=== PATIENT | male | born 1980 | race Caucasian/White ===

== ENCOUNTER 2024-06-27 16:48 | Emergency (ER) | payer OTHER ==
--- NOTE | 2024-06-27 16:57 | ERPHSYRPT ---
- History of Present Illness Time Seen by Provider: 06/27/24 16:57 Source: patient, family Exam Limitations: no limitations Physician History: This is a 44-year-old white male patient arrives by private vehicle with the complaint of vomiting, diarrhea and fever and is concerned about dehydration. Patient feels very fatigued and off mentally. His temperature on arrival to the emergency department is 102 F. Patient has a history of asthma and is HIV positive. His symptoms began 2 days ago. Patient denies abdominal pain. Patient denies chest pain. Patient denies cough. Timing/Duration: day(s) (2) Severity: moderate Associated Symptoms: nausea, vomiting, fever, weakness, other (Diarrhea), No abdominal pain, No shortness of breath, No chest pain Allergies/Adverse Reactions: doxycycline Allergy (Verified 01/17/14 03:40) Vomiting Hx Tetanus, Diphtheria Vaccination/Date Given: Yes Hx Influenza Vaccination/Date Given: No Hx Pneumococcal Vaccination/Date Given: No Travel Risk - International Travel Have you traveled outside of the country in past 3 weeks: No - Emerging Infectious Disease Are you exhibiting symptoms associated with any current EIDs: No Symptoms: Diarrhea, Fever, Vomitting - Review of Systems Constitutional: Fever, Weakness Eyes: No Symptoms Ears, Nose, & Throat: No Symptoms Respiratory: No Symptoms Cardiac: No Symptoms Abdominal/Gastrointestinal: Nausea, Vomiting, Diarrhea, Appetite Changes, No Abdominal Pain Genitourinary Symptoms: No Symptoms Musculoskeletal: No Symptoms Skin: No Symptoms Neurological: No Symptoms Psychological: No Symptoms Endocrine: No Symptoms Hematologic/Lymphatic: No Symptoms Immunological/Allergic: No Symptoms All Other Systems: Reviewed and Negative - Past Medical History Pertinent Past Medical History: No Neurological History: No Pertinent History ENT History: No Pertinent History Cardiac History: No Pertinent History Respiratory History: Asthma Endocrine Medical History: No Pertinent History Musculoskeletal History: No Pertinent History GI Medical History: No Pertinent History History: No Pertinent History Psycho-Social History: No Pertinent History Male Reproductive Disorders: No Pertinent History Other Medical History: HIV (+) - Past Surgical History Past Surgical History: No Neuro Surgical History: No Pertinent History Cardiac: No Pertinent History Respiratory: No Pertinent History Gastrointestinal: No Pertinent History Genitourinary: No Pertinent History Musculoskeletal: No Pertinent History Significant Family History: no pertinent family hx - Social History Smoking Status: Never smoker Exposure to second hand smoke: Yes Drug Use: none Patient Lives Alone: Yes - Nursing Vital Signs Nursing Vital Signs: Initial Vital Signs Temperature 102 F 06/27/24 16:48 Pulse Rate 96 H 06/27/24 16:48 Respiratory Rate 18 06/27/24 16:48 Blood Pressure 123/82 06/27/24 16:48 O2 Sat by Pulse Oximetry 99 06/27/24 16:48 Pain Scale Pain Intensity 0 - Physical Exam General Appearance: mild distress, alert, anxiety, thin Eye Exam: PERRL/EOMI, eyes nml inspection Ears, Nose, Throat Exam: dry mucous membranes Neck Exam: normal inspection, non-tender, supple, full range of motion, No meningismus, No Brudzinski, No Kernig's, No midline tenderness Respiratory Exam: normal breath sounds, lungs clear, airway intact, No chest tenderness, No respiratory distress Gastrointestinal/Abdomen Exam: soft, normal bowel sounds, No tenderness, No guarding Rectal Exam: not done Back Exam: normal inspection, normal range of motion, No CVA tenderness, No vertebral tenderness Extremity Exam: normal inspection, normal range of motion, pelvis stable Neurologic Exam: alert, oriented x 3, cooperative, solar sales II-XII nml as tested, nml cerebellar function, nml station & gait, sensation nml Skin Exam: normal color, warm, dry Lymphatic Exam: No adenopathy SpO2 Interpretation: normal O2 Delivery: Room Air - Course Nursing assessment & vital signs reviewed: Yes Ordered Tests: Active Orders 24 hr Category Date Time Status IV Insertion STAT Care 06/27/24 17:12 Active POCT Glucose Check STAT Care 06/27/24 17:37 Active CHEST 1 VIEW (PORTABLE) Stat Exams 06/27/24 18:59 Completed HEAD WITHOUT CONTRAST [CT] Stat Exams 06/27/24 17:36 Completed AMYLASE Stat Lab 06/27/24 17:24 Completed BLOOD CULTURE Stat Lab 06/27/24 17:35 Received CBC W DIFF Stat Lab 06/27/24 17:24 Completed CMP Stat Lab 06/27/24 17:24 Completed LIPASE Stat Lab 06/27/24 17:24 Completed Lactic Acid Stat Lab 06/27/24 17:12 Completed Lactic Acid Stat Lab 06/27/24 19:30 Received MONO SCREEN Stat Lab 06/27/24 17:24 Completed POCT GLUCOSE Stat Lab 06/27/24 18:04 Completed UA W/RFX UR CULTURE Stat Lab 06/27/24 20:11 Completed Medication Summary Discontinued Medications Generic Name Dose Route Start Last Admin Trade Name Teo PRN Reason Stop Dose Admin Acetaminophen 650 mg 06/27/24 17:58 06/27/24 18:09 Acetaminophen 325 Mg Tablet PO 06/27/24 17:59 650 mg STAT ONE Administration Acetaminophen Confirm 06/27/24 18:08 Acetaminophen 325 Mg Tablet Administered 06/27/24 18:09 Dose 650 mg .ROUTE .STK-MED ONE Sodium Chloride 1,000 mls @ 999 mls/hr 06/27/24 17:12 06/27/24 18:58 Sodium Chloride 0.9% 1000 Ml IV 06/27/24 18:12 Infused .Q1H1M STA Infusion Sodium Chloride Confirm 06/27/24 17:34 Sodium Chloride 0.9% 1000 Ml Administered 06/27/24 17:35 Dose 1,000 mls @ ud .ROUTE .STK-MED ONE Sodium Chloride 1,000 mls @ 999 mls/hr 06/27/24 18:53 06/27/24 20:00 Sodium Chloride 0.9% 1000 Ml IV 06/27/24 19:53 Infused .Q1H1M STA Infusion Sodium Chloride Confirm 06/27/24 18:57 Sodium Chloride 0.9% 1000 Ml Administered 06/27/24 18:58 Dose 1,000 mls @ ud .ROUTE .STK-MED ONE Ceftriaxone Sodium 1 gm in 100 mls @ 200 mls/hr 06/27/24 19:41 06/27/24 20:35 Rocephin 1 Gm / 100 Ml Nacl IV 06/27/24 20:10 Infused STAT ONE Infusion Ceftriaxone Sodium Confirm 06/27/24 19:50 Rocephin 1 Gm / 100 Ml Nacl Administered 06/27/24 19:51 Dose 1 gm in 100 mls @ ud IV .STK-MED ONE Ibuprofen 600 mg 06/27/24 19:32 06/27/24 19:51 Ibuprofen 600 Mg Tablet PO 06/27/24 19:33 600 mg STAT ONE Administration Ibuprofen Confirm 06/27/24 19:49 Ibuprofen 600 Mg Tablet Administered 06/27/24 19:50 Dose 600 mg .ROUTE .STK-MED ONE Metronidazole 500 mg 06/27/24 19:42 06/27/24 19:51 Metronidazole 500 Mg Tablet PO 06/27/24 19:43 500 mg STAT ONE Administration Metronidazole Confirm 06/27/24 19:50 Metronidazole 500 Mg Tablet Administered 06/27/24 19:51 Dose 500 mg .ROUTE .STK-MED ONE Ondansetron HCl 4 mg 06/27/24 17:12 06/27/24 17:42 Ondansetron Hcl 4 Mg/2 Ml Vial IV 06/27/24 17:13 4 mg STAT ONE Administration Ondansetron HCl Confirm 06/27/24 17:34 Ondansetron Hcl 4 Mg/2 Ml Vial Administered 06/27/24 17:35 Dose 4 mg .ROUTE .STK-MED ONE Lab/Rad Data: Laboratory Result Diagrams 06/27/24 17:24 06/27/24 17:24 Laboratory Results 06/27/24 06/27/24 06/27/24 Range/Units 20:11 18:04 17:35 WBC (4.23-9.07) x10^3/uL RBC (4.63-6.08) x10^6/uL Hgb (13.7-17.5) g/dL Hct (40.1-51.0) % MCV (79.0-92.2) fL MCH (25.7-32.2) pg MCHC (32.3-36.5) g/dL RDW (11.6-14.4) % Plt Count (163-337) x10^3/uL MPV (9.4-12.4) fL Gran % (34.0-67.9) % Immature Gran % (Auto) (0.001-0.429) % Nucleat RBC Rel Count (0.00-0.2) % Eos # (Auto) (0.04-0.54) x10^3/uL Immature Gran # (Auto) (0.001-0.031) x10^3u/L Absolute Lymphs (auto) (1.32-3.57) x10^3/uL Absolute Monos (auto) (0.30-0.82) x10^3/uL Absolute Nucleated RBC (0.00-0.012) x10^3u/L Lymphocytes % (21.8-53.1) % Monocytes % (5.3-12.2) % Eosinophils % (0.8-7.0) % Basophils % (0.2-1.2) % Absolute Granulocytes (1.78-5.38) x10^3/uL Basophils # (0.01-0.08) x10^3/uL Sodium (135-145) mmol/L Potassium (3.5-5.1) mmol/L Chloride (98-107) mmol/L Carbon Dioxide (22-30) mmol/L Anion Gap (5-15) MEQ/L BUN (9-20) mg/dL Creatinine (0.66-1.25) mg/dL Estimated GFR ML/MIN Glucose (74-106) mg/dL POC Glucometer 112 H (74 to 106) mg/dL Lactic Acid (0.4-2.0) Calcium (8.4-10.2) mg/dL Total Bilirubin (0.2-1.3) mg/dL AST (17-59) U/L ALT (0-50) U/L Alkaline Phosphatase (38-126) U/L Serum Total Protein (6.3-8.2) g/dL Albumin (3.5-5.0) g/dL Amylase (30-110) U/L Lipase (23-300) U/L Urine Color Dark Yellow (Yellow) Urine Appearance Cloudy A (Clear) Urine pH 5.5 (4.6-8.0) Ur Specific Gary >=1.030 A (1.005-1.030) Urine Protein 300 A (Negative) Urine Glucose (UA) Negative (Negative) mg/dL Urine Ketones Trace A (Negative) Urine Blood Negative (Negative) Urine Nitrite Negative (Negative) Urine Bilirubin Negative (Negative) Urine Urobilinogen 1.0 A (0.2) mg/dL Ur Leukocyte Esterase Negative (Negative) U Hyaline Cast (Auto) 3-5 A (0-2) /LPF Urine Microscopic RBC 0-2 (0-5) /HPF Urine Microscopic WBC 0-2 (0-5) /HPF Ur Epithelial Cells Rare (None Seen) /HPF Urine Bacteria None Seen (None Seen) /HPF Urine Culture Reflexed NO (NO) Monoscreen (NEGATIVE) Influenza Type A Ag NEGATIVE (NEGATIVE) Influenza Type B Ag NEGATIVE (NEGATIVE) RSV (PCR) NEGATIVE (NEGATIVE) SARS-CoV-2 (PCR) NEGATIVE (NEGATIVE) Group A Strep Antibody (NEGATIVE) Slides for Path Review 06/27/24 06/27/24 06/27/24 Range/Units 17:35 17:24 17:24 WBC (4.23-9.07) x10^3/uL RBC (4.63-6.08) x10^6/uL Hgb (13.7-17.5) g/dL Hct (40.1-51.0) % MCV (79.0-92.2) fL MCH (25.7-32.2) pg MCHC (32.3-36.5) g/dL RDW (11.6-14.4) % Plt Count (163-337) x10^3/uL MPV (9.4-12.4) fL Gran % (34.0-67.9) % Immature Gran % (Auto) (0.001-0.429) % Nucleat RBC Rel Count (0.00-0.2) % Eos # (Auto) (0.04-0.54) x10^3/uL Immature Gran # (Auto) (0.001-0.031) x10^3u/L Absolute Lymphs (auto) (1.32-3.57) x10^3/uL Absolute Monos (auto) (0.30-0.82) x10^3/uL Absolute Nucleated RBC (0.00-0.012) x10^3u/L Lymphocytes % (21.8-53.1) % Monocytes % (5.3-12.2) % Eosinophils % (0.8-7.0) % Basophils % (0.2-1.2) % Absolute Granulocytes (1.78-5.38) x10^3/uL Basophils # (0.01-0.08) x10^3/uL Sodium 131 L (135-145) mmol/L Potassium 3.7 (3.5-5.1) mmol/L Chloride 92 L (98-107) mmol/L Carbon Dioxide 26 (22-30) mmol/L Anion Gap 16.7 H (5-15) MEQ/L BUN 22 H (9-20) mg/dL Creatinine 1.72 H (0.66-1.25) mg/dL Estimated GFR 49.0 ML/MIN Glucose 132 H (74-106) mg/dL POC Glucometer (74 to 106) mg/dL Lactic Acid (0.4-2.0) Calcium 8.9 (8.4-10.2) mg/dL Total Bilirubin 1.00 (0.2-1.3) mg/dL AST 121 H (17-59) U/L ALT 97 H (0-50) U/L Alkaline Phosphatase 110 (38-126) U/L Serum Total Protein 9.1 H (6.3-8.2) g/dL Albumin 4.7 (3.5-5.0) g/dL Amylase 92 (30-110) U/L Lipase 89 (23-300) U/L Urine Color (Yellow) Urine Appearance (Clear) Urine pH (4.6-8.0) Ur Specific Gary (1.005-1.030) Urine Protein (Negative) Urine Glucose (UA) (Negative) mg/dL Urine Ketones (Negative) Urine Blood (Negative) Urine Nitrite (Negative) Urine Bilirubin (Negative) Urine Urobilinogen (0.2) mg/dL Ur Leukocyte Esterase (Negative) U Hyaline Cast (Auto) (0-2) /LPF Urine Microscopic RBC (0-5) /HPF Urine Microscopic WBC (0-5) /HPF Ur Epithelial Cells (None Seen) /HPF Urine Bacteria (None Seen) /HPF Urine Culture Reflexed (NO) Monoscreen NEGATIVE (NEGATIVE) Influenza Type A Ag (NEGATIVE) Influenza Type B Ag (NEGATIVE) RSV (PCR) (NEGATIVE) SARS-CoV-2 (PCR) (NEGATIVE) Group A Strep Antibody NOT DETECTED (NEGATIVE) Slides for Path Review 06/27/24 06/27/24 Range/Units 17:24 17:12 WBC 3.3 L (4.23-9.07) x10^3/uL RBC 5.35 (4.63-6.08) x10^6/uL Hgb 17.0 (13.7-17.5) g/dL Hct 47.7 (40.1-51.0) % MCV 89.2 (79.0-92.2) fL MCH 31.8 (25.7-32.2) pg MCHC 35.6 (32.3-36.5) g/dL RDW 12.3 (11.6-14.4) % Plt Count 93 L (163-337) x10^3/uL MPV 10.5 (9.4-12.4) fL Gran % 80.4 H (34.0-67.9) % Immature Gran % (Auto) 0.6 H (0.001-0.429) % Nucleat RBC Rel Count 0.0 (0.00-0.2) % Eos # (Auto) 0 L (0.04-0.54) x10^3/uL Immature Gran # (Auto) 0.02 (0.001-0.031) x10^3u/L Absolute Lymphs (auto) 0.47 L (1.32-3.57) x10^3/uL Absolute Monos (auto) 0.15 L (0.30-0.82) x10^3/uL Absolute Nucleated RBC 0.00 (0.00-0.012) x10^3u/L Lymphocytes % 14.2 L (21.8-53.1) % Monocytes % 4.5 L (5.3-12.2) % Eosinophils % 0.0 L (0.8-7.0) % Basophils % 0.3 (0.2-1.2) % Absolute Granulocytes 2.67 (1.78-5.38) x10^3/uL Basophils # 0.01 (0.01-0.08) x10^3/uL Sodium (135-145) mmol/L Potassium (3.5-5.1) mmol/L Chloride (98-107) mmol/L Carbon Dioxide (22-30) mmol/L Anion Gap (5-15) MEQ/L BUN (9-20) mg/dL Creatinine (0.66-1.25) mg/dL Estimated GFR ML/MIN Glucose (74-106) mg/dL POC Glucometer (74 to 106) mg/dL Lactic Acid 2.5 H (0.4-2.0) Calcium (8.4-10.2) mg/dL Total Bilirubin (0.2-1.3) mg/dL AST (17-59) U/L ALT (0-50) U/L Alkaline Phosphatase (38-126) U/L Serum Total Protein (6.3-8.2) g/dL Albumin (3.5-5.0) g/dL Amylase (30-110) U/L Lipase (23-300) U/L Urine Color (Yellow) Urine Appearance (Clear) Urine pH (4.6-8.0) Ur Specific Gary (1.005-1.030) Urine Protein (Negative) Urine Glucose (UA) (Negative) mg/dL Urine Ketones (Negative) Urine Blood (Negative) Urine Nitrite (Negative) Urine Bilirubin (Negative) Urine Urobilinogen (0.2) mg/dL Ur Leukocyte Esterase (Negative) U Hyaline Cast (Auto) (0-2) /LPF Urine Microscopic RBC (0-5) /HPF Urine Microscopic WBC (0-5) /HPF Ur Epithelial Cells (None Seen) /HPF Urine Bacteria (None Seen) /HPF Urine Culture Reflexed (NO) Monoscreen (NEGATIVE) Influenza Type A Ag (NEGATIVE) Influenza Type B Ag (NEGATIVE) RSV (PCR) (NEGATIVE) SARS-CoV-2 (PCR) (NEGATIVE) Group A Strep Antibody (NEGATIVE) Slides for Path Review YES - Progress Progress: improved Progress Note: 06/27/24 18:03 My medical decision making and the assignment of moderate complexity to this patient's medical issue today is based on review of the patient's past medical history, review of the patient's medication list, review the patient drug allergy list, history present illness and physical findings on examination. The workup in this patient includes viral swabs, monotest, group A strep test, urinalysis, chest x-ray, CBC, CMP, lactic acid level. We will also provide the patient with antiemetic intravenously and intravenous crystalloid as well as provide the patient with oral Tylenol. Differential diagnosis includes was not limited to urinary tract infection, viral illness, dehydration, pneumonia, upper respiratory infection 06/27/24 19:00 I interpreted the patient's laboratory data results. Based on the laboratory data results, the patient does have leukopenia with a left shift. There are no acute, emergent medical issues based on his laboratory data. The CT scan of the head without contrast was interpreted by the radiologist and I reviewed the impression. The impression states no CT evidence of acute infarction or hemorrhage. 06/27/24 20:05 Patient reexamined. Patient states he is feeling better and is hungry and thirsty. 06/27/24 20:51 The patient is tolerating oral intake. Patient wants to go home and we will discharge him with instructions to follow-up tomorrow for reassessment. Counseled pt/family regarding: lab results, diagnosis, rad results Medical Desision Making - Diagnostic Testing Diagnostic test were ordered, analyzed, and reviewed by me: Yes Radiological Interpretation: Interpreted by me, Reviewed by me, Teleradiologist Report - Risk of complications The pt has a mod risk of morbidity or mortality based on: Need for prescription drug management - Departure Departure Disposition: Home Clinical Impression: Fever of unknown origin, Vomiting and diarrhea Condition: Stable Critical Care Time: No Referrals: DOCTOR,NO FAMILY [Primary Care Provider, UNKNOWN] - Follow up/PCP as directed Additional Instructions: Drink plenty of clear liquids before advancing your diet. Advance your diet as tolerated. Take all your medications as prescribed. Return to the emergency department tomorrow at noon, 06/28/2024, for reevaluation. If your symptoms worsen before then, return to the emergency department. If you are discharged tomorrow after your emergency department reevaluation, make certain you call your primary care physician and your infectious disease physician on Saturday morning, 06/29/2024, to make arrangements to be seen in the next 2 to 3 days. Prescriptions: Smz/Tmp Ds Tablet [Bactrim Ds Tablet] 1 udtab PO BID #14 tablet Metronidazole 500 mg [Flagyl 500 MG] 500 mg PO TID #21 tablet
[2024-06-27 17:29] LABS: Absolute Neutrophil Ct (ANC) 2.67 x10^3/uL (1.78-5.38); BASOPHIL % 0.3 % (0.2-1.2); Basophil (Absolute #) 0.01 x10^3/uL (0.01-0.08); Eosinophil (Absolute #) 0 x10^3/uL (0.04-0.54); Hematocrit 47.7 % (40.1-51.0); IMMATURE GRAN # 0.02 x10^3u/L (0.001-0.031); IMMATURE GRAN % 0.6 % (0.001-0.429); Lymphocyte (Absolute #) 0.47 x10^3/uL (1.32-3.57); Lymphocytes % 14.2 % (21.8-53.1); Mean Cell Volume 89.2 fL (79.0-92.2); Mean Corpuscular Hemoglobin 31.8 pg (25.7-32.2); Mean Corpuscular Hgb Concent. 35.6 g/dL (32.3-36.5); Mean Platelet Volume 10.5 fL (9.4-12.4); Monocyte (Absolute #) 0.15 x10^3/uL (0.30-0.82); Monocytes % 4.5 % (5.3-12.2); Neutrophil % 80.4 % (34.0-67.9); Platelet Count 93 x10^3/uL (163-337); Red Blood Count 5.35 x10^6/uL (4.63-6.08); Red Cell Distribution Width 12.3 % (11.6-14.4); White Blood Count 3.3 x10^3/uL (4.23-9.07)
[2024-06-27 17:33] LABS: ALBUMIN 4.7 g/dL (3.5-5.0); ANION GAP 16.7 MEQ/L (5-15); Calcium 8.9 mg/dL (8.4-10.2); Creatinine 1 1.72 mg/dL (0.66-1.25); Potassium 3.7 mmol/L (3.5-5.1); Total Protein 9.1 g/dL (6.3-8.2)
[2024-06-27] MEDS ORDERED: Zofran 4 MG/2 ML VIAL ONE (17:34)
[2024-06-27] MEDS ORDERED: Sodium Chloride 0.9% 1000 ML 1,000 ML ONE ×2 (17:34→18:57)
[2024-06-27] MEDS: Zofran 4 MG/2 ML VIAL IV ONE (17:42)
[2024-06-27] MEDS: Sodium Chloride 0.9% 1000 ML 1,000 ML IV STA ×2 (17:51→18:58)
[2024-06-27] MEDS ORDERED: TYLENOL 325 MG ONE (18:08)
[2024-06-27] MEDS: TYLENOL 325 MG PO ONE (18:09)
[2024-06-27 18:23] LABS: INFLUENZA A NEGATIVE (NEGATIVE); INFLUENZA B NEGATIVE (NEGATIVE); RESPIRATORY SYNCTIAL VIRUS NEGATIVE (NEGATIVE); SARS-CoV-2 Xpert Express NEGATIVE (NEGATIVE)
--- NOTE | 2024-06-27 18:48 | XRAY ---
CLINICAL HISTORY: Confused speech COMPARISON: None. TECHNIQUE: Axial non-contrast CT scan of the brain was performed from the skull base to the high parietal region. One of the following dose reduction techniques were utilized for this exam: Automated exposure control, adjustment of the mA and/or kV according to patient size, use of iterative reconstruction. FINDINGS: Brain Parenchyma: Normal attenuation of the cerebral hemispheres, cerebellum, and brainstem. No evidence of acute infarct, hemorrhage, or mass effect. No abnormal areas of hypo- or hyperattenuation. Ventricular System: Ventricles are normal in size and configuration. No evidence of hydrocephalus or ventricular enlargement. Subarachnoid Spaces: Normal sulci and cisterns. No evidence of subarachnoid hemorrhage or extra-axial fluid collections. Cerebellum and Brainstem: No masses, lesions, or areas of abnormal density. Orbits: Normal appearance of the globes, optic nerves, and extraocular muscles. No evidence of orbital masses or abnormal density. Sinuses: Left maxillary sinus mucocele. Mastoid Air Cells: Clear mastoid air cells. No evidence of mastoiditis. Skull: Normal skull morphology. IMPRESSION: No CT signs of acute infarction or hemorrhage. If acute a stroke is a clinical concern, further evaluation with MRI stroke protocol is advised Electronically Signed by: Monisha Cordero MD. (06/27/2024 18:44:31 EDT)
[2024-06-27 19:01] LABS: Slide Review 1 YES
[2024-06-27] MEDS ORDERED: MOTRIN 600 MG ONE (19:49)
[2024-06-27] MEDS ORDERED: Flagyl 500 MG ONE (19:50)
[2024-06-27] MEDS ORDERED: ROCEPHIN 1 GM / 100 ML NaCl 1 GM/100 ML IVPB IV ONE (19:50)
[2024-06-27] MEDS: MOTRIN 600 MG PO ONE (19:51)
[2024-06-27] MEDS: Flagyl 500 MG PO ONE (19:51)
[2024-06-27] MEDS: ROCEPHIN 1 GM / 100 ML NaCl 1 GM/100 ML IVPB IV ONE (19:51)
[2024-06-27 20:26] LABS: Appearance Cloudy (Clear); Bacteria None Seen /HPF (None Seen); Bilirubin Negative (Negative); Blood Negative (Negative); Epithelial Cells Rare /HPF (None Seen); Glucose, Urine Negative (Negative); Ketones Trace (Negative); Leukocyte Esterase Negative (Negative); Nitrite Negative (Negative); Ph 5.5 (4.6-8.0); Protein,Urine Dip 300 (Negative); RBC 0-2 /HPF (0-5); Specific Gravity >=1.030 (1.005-1.030); WBC 0-2 /HPF (0-5)
--- NOTE | 2024-06-27 20:40 | XRAY ---
Indication: Fever unknown origin. Comparison: None Portable chest inflated and clear with a few incidental tiny calcified granulomas. Heart and mediastinal structures within normal limits. Bony thorax intact with minimal levoscoliosis. Impression: Nonacute chest with chronic features.
[2024-06-27 21:08] VITALS: BP 122/68; PULSE 74; RESP 16; TEMP 98.8; O2SAT 99
== END 2024-06-27 21:04 | disposition home or self-care (01) ==
LOC: ED 16:48
DX: R50.9 Fever, unspecified (principal); R11.2 Nausea with vomiting, unspecified; R19.7 Diarrhea, unspecified; Z79.899 Other long term (current) drug therapy
CPT/HCPCS: 0241U; 36415; 70450; 71045; 80053; 81001; 82150; 82947; 83605; 83690; 85025; 86308; 87040; 87651; 96361; 96365; 96375; 99285; 96374; J0696; J2405; A9270-GY